=== PATIENT | female | born 1960 | race Caucasian/White ===

== ENCOUNTER → 2018-05-05 | Outpatient (CLI) | payer BC ==
--- NOTE | 2018-05-05 17:00 | US ---
Procedure: US LOWER EXTREMITY VEINS LIMITED/UNILATERAL/FOLLOW UP Exam Date: 05/05/2018 Ordering Provider: VEGA NATHAN Clinical Indication: M79.604 Comparison: None Real time ultrasound was utilized for evaluation of the deep veins of the Right lower extremity. Color Doppler and pulse Doppler analysis was performed, including B-mode/grayscale imaging, Doppler spectral analysis and color flow analysis. Real time visualization of the right lower extremity deep veins was accomplished. [employer] images recorded. The deep veins demonstrated no abnormal intraluminal signal. The pulse Doppler and color Doppler flow patterns demonstrated normal venous flow with respiratory variation. There was increased flow with distal augmentation maneuvers. IMPRESSION: No evidence of DVT in the right lower extremity. Electronically signed by: Dain Salgado MD 05/05/2018 4:59 PM CDT
== END ==
LOC: US 14:59
PROVIDERS: ATTEND Family Medicine
DX: M79.604 Pain in right leg (principal)

== ENCOUNTER → 2018-06-13 | Outpatient (CLI) | payer BC ==
--- NOTE | 2018-06-13 15:19 | RAD ---
EXAM DESCRIPTION: Knee,Right Complete CLINICAL HISTORY: KNEE PAIN COMPARISON: None. IMPRESSION: 4 views of the right knee show no evidence of acute fracture, focal bone destruction, or joint dislocation. Soft tissues are unremarkable. No significant joint effusion is seen. Electronically signed by: Del Orozco MD 06/13/2018 3:18 PM CDT
--- NOTE | 2018-06-13 15:52 | RAD ---
EXAM DESCRIPTION: Pelvis CLINICAL HISTORY: HIP PAIN COMPARISON: None. IMPRESSION: Single AP supine view of the pelvis shows no evidence of acute fracture, focal bone destruction, or joint dislocation. No advanced arthrosis is seen in the hips. Mild sclerotic changes seen around the inferior sacroiliac joints left greater than right suggesting osteoarthritic changes. Electronically signed by: Del Orozco MD 06/13/2018 3:50 PM CDT
== END ==
LOC: RAD 12:37
PROVIDERS: ATTEND Orthopaedic Surgery
DX: M25.561 Pain in right knee (principal); M25.551 Pain in right hip

== ENCOUNTER → 2019-06-20 | Outpatient (CLI) | payer BC ==
--- NOTE | 2019-06-21 10:24 | MRI ---
MRI right knee without contrast INDICATION: Knee pain meniscal tear lateral pain and posterior pain previous arthroscopy x2 TECHNIQUE: Noncontrast MR imaging right knee FINDINGS: Small joint effusion. 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 Subchondral cystic change and edema. Cruciate ligaments are intact. Extensor tendons are intact. Mild prepatellar and superficial infrapatellar bursitis. Undersurface fraying posterior horn lateral meniscus chronic/degenerative in appearance. Diffuse free edge truncation and volume loss indicating partial meniscectomy. Collateral ligaments are intact. No advanced arthrosis of the tibiofemoral compartments. There is chondral thinning grade 2-3 in the lateral femoral condyle without subchondral edema or cystic change. No bucket-handle displacement. There is prominent interstitial increased signal with degeneration and mild interstitial delamination in the body and anterior horn lateral meniscus. This is age-indeterminate. Mild IT band friction edema. 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
== END ==
LOC: MRI 08:52
PROVIDERS: ATTEND Orthopaedic Surgery
DX: S83.203D Other tear of unspecified meniscus, current injury, right knee, subsequent encounter (principal); M94.261 Chondromalacia, right knee; M25.461 Effusion, right knee; Z98.890 Other specified postprocedural states

== ENCOUNTER → 2020-06-20 | Outpatient (CLI) | payer BC | LOC: GMA MATASK 10:51 | PROVIDERS: ATTEND Family Medicine | DX: Z00.01 Encounter for general adult medical examination with abnormal findings (principal); R53.83 Other fatigue ==

== ENCOUNTER → 2020-08-25 | Outpatient (CLI) | payer BC | LOC: GMA MATASK 14:13 | PROVIDERS: ATTEND Family Medicine | DX: M25.549 Pain in joints of unspecified hand (principal) ==